=== PATIENT | male | born 1960 | race Caucasian/White ===

== ENCOUNTER 2020-12-27 08:53 | Inpatient (IN) | payer SELFPAY ==
[~2020-12-27] VITALS: Ht 170.2 cm; Wt 103.9 kg
[~2020-12-27 08:53] MED LIST: CITA20TA9 PO; INSU100I11 SQ; METF500T17 PO
--- NOTE | 2020-12-27 09:20 | NUR ---
PT BROUGHT BACK TO ROOM ROM TRIAGE. PT CO SEVER LUQ PAIN AND VOMITING X 2 MONTHS. PT WAS DIAGNOSED WITH GASTRIC ULCER IN OCTOBER, BUT WAS UNABLE TO FOLLOW UP WITH A GI MD D/T LACK OF INSURANCE. PT DENIES ANY BLOODY STOOL OR BLOOD IN VOMIT. PT IS GUARDING ABDOMEN.
[2020-12-27] MEDS ORDERED: HYDROmorphone 1 MG/ML, 1ML INJ ONE (09:27)
[2020-12-27] MEDS ORDERED: PANTOPRAZOLE 40 MG IV ONE (09:28)
[2020-12-27] MEDS ORDERED: MAALOX/HYOSCYAMINE/LIDOCAINE 45 ML BTL ONE (09:28)
[2020-12-27] MEDS ORDERED: ONDANSETRON 2MG/ML, 2ML ONE (09:28)
[2020-12-27] MEDS ORDERED: MAALOX/HYOSCYAMINE/LIDOCAINE 45 ML BTL PO ONE (09:30)
[2020-12-27] MEDS ORDERED: ONDANSETRON 2MG/ML, 2ML IVPush ONE (09:30)
[2020-12-27] MEDS ORDERED: HYDROmorphone 1 MG/ML, 1ML INJ IV ONE (09:30)
[2020-12-27] MEDS ORDERED: PANTOPRAZOLE 40 MG IV IV ONE (09:30)
[2020-12-27 09:55] LABS: BASOPHILS % (AUTO) 0 % (0-1); EOSINOPHILS % (AUTO) 2 % (1-7); LYMPHOCYTES % (AUTO) 23 % (22-44); MEAN CORPUSCULAR HEMOGLOBIN 32.7 pg (27.5-34.5); MEAN CORPUSCULAR HGB CONC 35.3 g/dL (33.2-36.2); MEAN PLATELET VOLUME 7.4 fL (7.4-10.4); MONOCYTES % (AUTO) 5 % (2-9); NEUTROPHILS % (AUTO) 71 % (42-75); PLATELET COUNT 272 x10^3/uL (130-400); RED BLOOD COUNT 5.37 x10^6/uL (4.38-5.82); RED CELL DISTRIBUTION WIDTH 12.9 % (9.4-14.8)
[2020-12-27 09:57] LABS: MD NO
[2020-12-27 09:59] LABS: ALBUMIN 3.8 g/dL (3.4-5.0); ANION GAP 6 mmol/L (5-15); CALCIUM 9.3 mg/dL (8.5-10.1); CHLORIDE 103 mmol/L (98-107)
[2020-12-27 10:02] LABS: ALANINE AMINOTRANSFERASE 24 U/L (12-78); ALKALINE PHOSPHATASE 73 U/L (45-117); BILIRUBIN,TOTAL 1.1 mg/dL (0.2-1.0); TOTAL PROTEIN 7.5 g/dL (6.4-8.2)
--- NOTE | 2020-12-27 10:19 | NUR ---
task rn. in room for monitor check, pt found to have o2 sat of 80%. pt placed on 2.5 lpm o2 via nc to achieve sat of 96%
[2020-12-27] MEDS ORDERED: OMNIPAQUE 350 MG/ML, 100ML BOTTLE ONE (10:20)
--- NOTE | 2020-12-27 10:29 | NUR ---
PT TO CT
--- NOTE | 2020-12-27 11:00 | NUR ---
PT RESTING COMFORTABLY IN BED. PT STATED THAT PAIN MEDICATION HELPED SIGNIFICANTLY.
[2020-12-27] MEDS ORDERED: BISACODYL 10 MG SUPP PR PRN (12:00)
[2020-12-27] MEDS ORDERED: ONDANSETRON 2MG/ML, 2ML IVPush PRN (12:00)
[2020-12-27] MEDS ORDERED: ACETAMINOPHEN 325 MG TABLET PO PRN (12:00)
[2020-12-27] MEDS ORDERED: POLYETHYLENE GLYCOL 17 GM PACKET PO PRN (12:00)
[2020-12-27] MEDS ORDERED: MELATONIN 5 MG TABLET PO PRN (12:00)
[2020-12-27] MEDS ORDERED: hydrALAzine 20 MG/ML, 1ML IVPush PRN (12:00)
--- NOTE | 2020-12-27 12:10 | NUR ---
report given to CASI Robb
[2020-12-27 12:47] VITALS: BP 130/85
[2020-12-27] MEDS ORDERED: POTASSIUM CHLORIDE 20 MEQ in SODIUM CHLORIDE 0.9% 250 ML IV ONE (13:00)
[2020-12-27] MEDS: PANTOPRAZOLE 40 MG IV IVPush SCH (13:21)
[2020-12-27] MEDS: LACTATED RINGERS 1,000 ML IV SCH (13:22)
[2020-12-27 14:00] VITALS: BP 119/77
[2020-12-27] MEDS: morphine SULFATE 10 MG/ML, 1ML IVPush PRN (15:11)
[2020-12-27 21:09] VITALS: BP 118/72
[2020-12-28] MEDS: PANTOPRAZOLE 40 MG IV IVPush SCH ×2 (00:59→13:24)
[2020-12-28] MEDS: LACTATED RINGERS 1,000 ML IV SCH ×2 (01:02→14:28)
[2020-12-28 02:43] VITALS: BP 150/90
[2020-12-28 05:13] LABS: BASOPHILS % (AUTO) 1 % (0-1); EOSINOPHILS % (AUTO) 2 % (1-7); LYMPHOCYTES % (AUTO) 32 % (22-44); MEAN CORPUSCULAR HEMOGLOBIN 32.8 pg (27.5-34.5); MEAN CORPUSCULAR HGB CONC 35.8 g/dL (33.2-36.2); MEAN PLATELET VOLUME 7.2 fL (7.4-10.4); MONOCYTES % (AUTO) 5 % (2-9); NEUTROPHILS % (AUTO) 60 % (42-75); PLATELET COUNT 233 x10^3/uL (130-400); RED BLOOD COUNT 5.08 x10^6/uL (4.38-5.82); RED CELL DISTRIBUTION WIDTH 13.1 % (9.4-14.8)
[2020-12-28 05:20] LABS: CHLORIDE 106 mmol/L (98-107); INTERNATIONAL NORMALIZED RATIO 1.08 (0.93-1.1); PROTHROMBIN TIME 11.5 Seconds (9.6-11.5)
[2020-12-28 05:24] LABS: ALANINE AMINOTRANSFERASE 24 U/L (12-78); ALBUMIN 3.3 g/dL (3.4-5.0); ALKALINE PHOSPHATASE 66 U/L (45-117); ANION GAP 4 mmol/L (5-15); BILIRUBIN,TOTAL 1.1 mg/dL (0.2-1.0); CALCIUM 8.9 mg/dL (8.5-10.1); CREATININE 0.86 mg/dL (0.7-1.3); TOTAL PROTEIN 6.8 g/dL (6.4-8.2)
[2020-12-28 05:34] LABS: MD NO
[2020-12-28] MEDS: morphine SULFATE 10 MG/ML, 1ML IVPush PRN (07:51)
[2020-12-28 08:31] VITALS: BP 147/93
[2020-12-28] MEDS ORDERED: INSULIN LISPRO 100 UNITS/ML, PEN SQ-INSULIN SCH (09:00)
[2020-12-28] MEDS ORDERED: CITALOPRAM 20 MG TABLET PO SCH (09:00)
[2020-12-28] MEDS ORDERED: PROPOFOL 10 MG/ML, 20ML ONE (11:40)
[2020-12-28] MEDS ORDERED: LIDOCAINE-MPF 2% ,5ML ONE (11:40)
[2020-12-28] MEDS ORDERED: PROMETHAZINE 12.5 MG SUPP PR PRN (12:00)
[2020-12-28] MEDS ORDERED: DIAZEPAM 5 MG/ML, 2ML IVPush PRN (12:00)
[2020-12-28] MEDS ORDERED: MEPERIDINE/PF 25MG/0.5ML IVPush PRN (12:00)
[2020-12-28] MEDS ORDERED: HYDROmorphone 1 MG/ML, 1ML INJ IVPush PRN (12:00)
[2020-12-28] MEDS ORDERED: ONDANSETRON 2MG/ML, 2ML IVPush PRN (12:00)
[2020-12-28] MEDS ORDERED: MIDAZOLAM 1 MG/ML, 2ML IV PRN (12:00)
[2020-12-28] MEDS ORDERED: FENTANYL PF 100 MCG/2ML IV PRN (12:00)
[2020-12-28] MEDS ORDERED: ACETAMINOPHEN 325 MG TABLET PO PRN (12:00)
[2020-12-28] MEDS ORDERED: EPHEDRINE 50 MG/ML, 1ML IVPush PRN (12:00)
[2020-12-28] MEDS ORDERED: PROMETHAZINE 25 MG/ML, 1ML IVPush PRN (12:00)
[2020-12-28] MEDS ORDERED: OXYcodone 5 MG/5 ML ORAL.SOL UDC PO PRN (12:00)
[2020-12-28] MEDS ORDERED: ALBUTEROL SULFATE 2.5 MG/3 ML NPPB PRN (12:00)
[2020-12-28] MEDS ORDERED: DIPHENHYDRAMINE 50 MG/ML, 1ML IVPush PRN ×2 (12:00)
[2020-12-28] MEDS ORDERED: LABETALOL 5MG/ML, 20ML IV PRN (12:00)
[2020-12-28] MEDS ORDERED: hydrALAzine 20 MG/ML, 1ML IV PRN (12:00)
[2020-12-28 12:50] VITALS: BP 155/80
[2020-12-28] MEDS ORDERED: PANT40TA3 PO (15:02)
== END 2020-12-28 15:55 | disposition home or self-care (01) | DRG 392 ==
LOC: ED 09:31 → SUATTDRO 11:46 → EDIP 11:47 → 4NW 12:36 → DCLOUNGE 12-28 15:37
PROVIDERS: ADMIT Hospitalist; ATTEND Hospitalist
PROC: 0DB68ZX Excision of Stomach, Via Natural or Artificial Opening Endoscopic, Diagnostic (ICD-10-PCS; 2020-12-28)
PROC: 0DB98ZX Excision of Duodenum, Via Natural or Artificial Opening Endoscopic, Diagnostic (ICD-10-PCS; principal; 2020-12-28 10:45)
DX: K29.70 Gastritis, unspecified, without bleeding (principal); R65.10 Systemic inflammatory response syndrome (SIRS) of non-infectious origin without acute organ dysfunction; Z20.822 Contact with and (suspected) exposure to COVID-19; E11.9 Type 2 diabetes mellitus without complications; F17.210 Nicotine dependence, cigarettes, uncomplicated; K76.0 Fatty (change of) liver, not elsewhere classified; D72.829 Elevated white blood cell count, unspecified; R63.4 Abnormal weight loss; E87.6 Hypokalemia; F32.9 Major depressive disorder, single episode, unspecified; K29.80 Duodenitis without bleeding; K76.89 Other specified diseases of liver; E80.6 Other disorders of bilirubin metabolism; Z79.899 Other long term (current) drug therapy; Z82.0 Family history of epilepsy and other diseases of the nervous system; Z82.5 Family history of asthma and other chronic lower respiratory diseases; Z87.11 Personal history of peptic ulcer disease; Z90.49 Acquired absence of other specified parts of digestive tract; Z79.4 Long term (current) use of insulin; Z79.01 Long term (current) use of anticoagulants; Z79.891 Long term (current) use of opiate analgesic; Z80.0 Family history of malignant neoplasm of digestive organs; Z83.6 Family history of other diseases of the respiratory system; Z68.35 Body mass index [BMI] 35.0-35.9, adult
CPT/HCPCS: 36415; 96374; 99285; J3490; 71045; 74177; 76700; 80053; 80074; 82962; 83036; 83690; 83735; 84100; 84443; 85025; 85610; 87635; 88305; 93005; G0378; J1170; J2405; J2704; J3480; Q9967; C9113; J2270; J7050; J7120

== ENCOUNTER → 2021-02-04 | Outpatient (CLI) | payer OTHER ==
[~2021-02-04] MED LIST changes: +HYDR-3241 PO; +INSU100I34 SC; +L.AC1CAP6 PO; +MULT-717 PO; +OMEP40CA42 PO; +PANT40TA3 PO; +atorvastatin PO
[2021-02-04 12:19] LABS: ALBUMIN 3.7 g/dL (3.4-5.0); ANION GAP 4 mmol/L (5-15); CALCIUM 8.8 mg/dL (8.5-10.1); CHLORIDE 105 mmol/L (98-107)
[2021-02-04 12:23] LABS: ALANINE AMINOTRANSFERASE 22 U/L (12-78); ALKALINE PHOSPHATASE 71 U/L (45-117); BILIRUBIN,TOTAL 0.7 mg/dL (0.2-1.0); CREATININE 0.79 mg/dL (0.7-1.3); TOTAL PROTEIN 7.5 g/dL (6.4-8.2)
== END | disposition home or self-care (01) ==
LOC: STAR 11:13
PROVIDERS: ATTEND Internal Medicine Geriatric Medicine
DX: Z01.818 Encounter for other preprocedural examination (principal); R10.9 Unspecified abdominal pain; R63.4 Abnormal weight loss; R93.89 Abnormal findings on diagnostic imaging of other specified body structures; I25.2 Old myocardial infarction; Z20.822 Contact with and (suspected) exposure to COVID-19
CPT/HCPCS: 36415; 80053; 93005; U0003; U0005

== ENCOUNTER 2021-02-10 07:54 | Day surgery (SDC) | payer OTHER ==
[~2021-02-10] VITALS: Ht 170.2 cm; Wt 105.1 kg
[2021-02-10 08:50] VITALS: BP 125/91
[2021-02-10] MEDS ORDERED: ATOR20TA37 PO (08:56)
[2021-02-10] MEDS ORDERED: CHLORHEXIDINE 15 ML UDC ONE (08:57)
[2021-02-10] MEDS ORDERED: CHLORHEXIDINE 15 ML UDC PO ONE (09:00)
[2021-02-10] MEDS ORDERED: LACTATED RINGERS 1,000 ML IV SCH (09:00)
[2021-02-10] MEDS ORDERED: PROPOFOL 50 ML ONE (09:35)
[2021-02-10] MEDS ORDERED: FENTANYL PF 100 MCG/2ML IV PRN (10:00)
[2021-02-10] MEDS ORDERED: ACETAMINOPHEN 325 MG TABLET PO PRN (10:00)
[2021-02-10] MEDS ORDERED: ONDANSETRON 2MG/ML, 2ML IVPush PRN (10:00)
== END 2021-02-10 11:30 | disposition home or self-care (01) ==
LOC: OUT 07:54
PROVIDERS: ATTEND Internal Medicine Geriatric Medicine
DX: R93.5 Abnormal findings on diagnostic imaging of other abdominal regions, including retroperitoneum (principal); K29.50 Unspecified chronic gastritis without bleeding; K21.9 Gastro-esophageal reflux disease without esophagitis; I10 Essential (primary) hypertension; E11.9 Type 2 diabetes mellitus without complications; E78.5 Hyperlipidemia, unspecified; Z79.899 Other long term (current) drug therapy
CPT/HCPCS: 43239; 43259; 82962; 88305; J2704; J7120